=== PATIENT | male | born 1975 | race Two or more races ===

== ENCOUNTER 2021-04-07 08:45 | Emergency (ER) | payer OTHER ==
[2021-04-07 09:02] VITALS: BP 150/93; PULSE 67; TEMP 97.4; BMI 29.0
[2021-04-07] MEDS ORDERED: predniSONE 20 MG TABLET (UD) PO ONE (09:22)
[2021-04-07] MEDS ORDERED: predniSONE 20 MG TABLET (UD) ONE (09:23)
== END 2021-04-07 10:00 | disposition home or self-care (01) ==
LOC: JER 08:45
DX: L25.5 Unspecified contact dermatitis due to plants, except food (principal)
CPT/HCPCS: 99283-25